=== PATIENT | male | born 1985 | race African-American/Black ===

== ENCOUNTER 2020-05-07 05:10 | Emergency (ER) | payer SELFPAY ==
[2020-05-07] MEDS ORDERED: NA CHLORIDE 0.9% 1,000 ML ONE (05:53)
[2020-05-07 06:01] LABS: Absolute Lymphocytes (CBC) 1.4 K/uL (0.7-4.9); Basophils % 0.8 % (0-1.3); Hematocrit 34.2 % (39.6-49.0); Lymphocytes % 35.5 % (15.3-44.8); MPV 7.3 fL (7.6-11.3); RBC Red Blood Cell Count 4.71 M/uL (4.33-5.43)
[2020-05-07 06:23] LABS: ALT/SGPT 30 U/L (12-78); AST/SGOT 26 U/L (15-37); Albumin 3.7 g/dL (3.4-5.0); Alkaline Phosphatase 75 U/L (45-117); BUN Blood Urea Nitrogen 13 mg/dL (7-18); Bicarbonate 29 mmol/L (21-32); Bilirubin Direct < 0.1 mg/dL (0-0.2); Bilirubin Total 0.2 mg/dL (0.2-1.0); Glucose Level 94 mg/dL (74-106); Lipase 60 U/L (73-393); Protein, Total 7.3 g/dL (6.4-8.2); Sodium Level 140 mmol/L (136-145)
[2020-05-07] MEDS ORDERED: MAGNESIUM CITRATE 300 ML BOT ONE (06:42)
[2020-05-07] MEDS ORDERED: BISACODYL 10 MG RECTAL SUPP ONE (06:42)
[2020-05-07] MEDS ORDERED: ACETAMINOPHEN 500 MG TAB ONE (06:58)
--- NOTE | 2020-05-07 07:04 | RAD REPORT ---
EXAM DESCRIPTION: RAD - Abdomen Acute Series - 05/07/2020 6:21 am CLINICAL HISTORY: CONSTIPATION Abdominal pain COMPARISON: No comparisons FINDINGS: Lungs are clear. Heart size and pulmonary vasculature are normal. No pleural effusion, pne umothorax or other acute cardiopulmonary process seen. Large amount of stool is present filling but not dilating the colon from cecum to descending colon. A ir-filled redundant sigmoid colon is present without any measurable quantity of stool. No small bowel dilatation. No free air or pneumatosis. No suspicious calcifications. No other suspicious for significant findings. IMPRESSION: Large stool volume from cecum through descending colon. No bowel obstruction, free air or emergent finding.
--- NOTE | 2020-05-07 07:17 | ER ---
Nurse's Notes [facility] Name: Chaparro Olivas Age: 34 yrs Sex: Male : 1985 Arrival Date: 05/07/2020 Time: 05:11 Bed 7 Private MD: Diagnosis: Constipation Presentation: 05/07 05:24 Chief complaint: Patient states: Pt reports he has been constipated for 3 to 4 days, ea reports he has been having abdominal cramping. Coronavirus screen: At this time, the client does not indicate any symptoms associated with coronavirus-19. Ebola Screen: No symptoms or risks identified at this time. Initial Sepsis Screen: Does the patient meet any 2 criteria? No. Patient's initial sepsis screen is negative. Does the patient have a suspected source of infection? No. Patient's initial sepsis screen is negative. Risk Assessment: Do you want to hurt yourself or someone else? Patient reports no desire to harm self or others. Onset of symptoms was May 07, 2020. 05:24 Method Of Arrival: Ambulatory ea 05:24 Acuity: RAFAELA 3 ea Triage Assessment: 05:27 General: Appears uncomfortable, Behavior is appropriate for age. Pain: Complains of ea pain in abdomen. Neuro: Level of Consciousness is awake, alert, obeys commands, Oriented to person, place, time. Respiratory: Airway is patent Respiratory effort is even, unlabored, Respiratory pattern is regular, symmetrical. GI: Abdomen is non-distended. Derm: Skin is pink, warm \T\ dry. Historical: - Allergies: 05:27 No Known Allergies; ea - Home Meds: 05:27 None [Active]; ea - PMHx: 05:27 None; ea - PSHx: 05:27 abdominal surgery; ea - Immunization history:: Adult Immunizations up to date. - Social history:: Smoking status: Patient denies any tobacco usage or history of. Screenin:26 Abuse screen: Denies threats or abuse. Nutritional screening: No deficits noted. ea Tuberculosis screening: No symptoms or risk factors identified. Fall Risk None identified. Assessment: 05:28 Reassessment: see triage assessment. ea 06:53 Reassessment: Patient and/or family updated on plan of care and expected duration. Pain ea level reassessed. Patient is alert, oriented x 3, equal unlabored respirations, skin warm/dry/pink. 07:16 General: Appears in no apparent distress. comfortable, Behavior is calm, cooperative. ss Pain: Complains of pain in abdomen Pain currently is 3 out of 10 on a pain scale. Quality of pain is described as aching, Is continuous. Neuro: Level of Consciousness is awake, alert, obeys commands, Oriented to person, place, time, situation. Respiratory: Airway is patent Respiratory effort is even, unlabored, Respiratory pattern is regular, symmetrical. GI: Bowel sounds present X 4 quads. Abd is soft and non tender X 4 quads. Reports Pt just returned from the restroom and reports that he had a large BM and feels much better. Pain has improved. : No signs and/or symptoms were reported regarding the genitourinary system. EENT: Oral mucosa is moist. Derm: Skin is intact, is healthy with good turgor, Skin is dry, Skin is pink, warm \T\ dry. normal. Vital Signs: 05:24 BP 160 / 108; Pulse 88; Resp 18; Temp 98.3; Pulse Ox 99% ; Weight 90.72 kg; Height 6 ea ft. 4 in. (193.04 cm); 07:16 BP 158 / 107; Pulse 46; Resp 15; Pulse Ox 100% on R/A; Pain 3/10; ss 05:24 Body Mass Index 24.34 (90.72 kg, 193.04 cm) ea ED Course: 05:11 Patient arrived in ED. cl3 05:22 Joseph Canales MD is Attending Physician. pkl 05:24 Sara Abraham RN is Primary Nurse. ea 05:26 Triage completed. ea 05:27 Arm band placed on right wrist. Patient placed in an exam room, on a stretcher, on ea pulse oximetry. 05:27 Patient has correct armband on for positive identification. Bed in low position. Call ea light in reach. Side rails up X 1. 05:57 Inserted saline lock: 20 gauge in right antecubital area, using aseptic technique. ea Blood collected. 06:21 XRAY Abdomen Acute Series In Process Unspecified. EDMS 07:16 No provider procedures requiring assistance completed. ss 07:35 IV discontinued, intact, bleeding controlled, No redness/swelling at site. Pressure ss dressing applied. Administered Medications: 05:55 Drug: NS 0.9% 1000 ml Route: IV; Rate: 1000 ml; Site: right antecubital; ea 07:36 Follow up: IV Status: Completed infusion; IV Intake: 1000ml ss 06:30 Drug: Dulcolax Suppository 10 mg Route: PA; ea 07:35 Follow up: Response: No adverse reaction; Marked relief of symptoms ss 06:31 Drug: Magnesium Citrate Liquid 300 ml Route: PO; ea 07:35 Follow up: Response: No adverse reaction; Marked relief of symptoms ss 06:46 Drug: Tylenol 1000 mg Route: PO; ea 07:36 Follow up: Response: No adverse reaction; Marked relief of symptoms ss Intake: 07:36 IV: 1000ml; Total: 1000ml. ss Outcome: 07:17 Discharge ordered by . ps1 07:35 Discharged to home ambulatory, with family. ss 07:35 Condition: improved 07:35 Discharge instructions given to patient, family, Instructed on discharge instructions, follow up and referral plans. medication usage, Demonstrated understanding of instructions, follow-up care, medications, Prescriptions given X 1. 07:36 Patient left the ED. ss Signatures: Dispatcher [employer] EDJoseph Gutierres MD MD pkl Smirch, Shelby, RN RN ss Sara Abraham RN RN ea Singer, Phillip, MD MD ps1 Lewis, Charde cl3
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
[2020-05-07 07:55] LABS: Platelet Estimate ADEQ
[2020-05-07 07:56] LABS: Platelets, Giant FEW
[2020-05-07 07:57] LABS: Anisocytosis 1+; Blood Morphology Comment NOTED (NOT SEEN); Hypochromasia 2+
[2020-05-07 07:58] LABS: Target Cells FEW
[2020-05-07 09:35] VITALS: TEMP 98.3
[2020-05-07 09:37] VITALS: BP 158/107; O2SAT 100
== END 2020-05-07 07:36 | disposition home or self-care (01) ==
LOC: ER 05:10
DX: K59.00 Constipation, unspecified (principal)
CPT/HCPCS: 36415; 74022; 80048; 80076; 83690; 85025; 96360; 96361; 99284; J7030